=== PATIENT | female | born 1955 | race African-American/Black ===

== ENCOUNTER → 2019-12-22 | Outpatient (CLI) | payer OTHER ==
--- NOTE | 2019-12-22 17:17 | RAD ---
Examination: Limited left breast ultrasound. INDICATION: 64-year-old woman with a suspicious 9 mm mass in the lower inner left breast and suspicious left axillary lymph nodes are recommended for biopsy is requested for preprocedural sonographic evaluation of asymmetries in the left breast prior to biopsy. COMPARISON: Bilateral screening mammogram of 12/06/2019 and left breast ultrasound of 12/06/2019. TECHNIQUE: Targeted ultrasound of the left breast focused at the 12:00 position 5 cm from the nipple identified a ridge of dense fibroglandular tissue with no definite sonographic abnormality. Sonographic survey of the left breast at the 11:00 position 4 cm from the nipple identified irregular hypoechoic 5 mm mass that is sonographically suspicious and recommended for ultrasound-guided core needle biopsy. This will be accomplished concurrent with the mass at the left 8:00 position 6 cm from the nipple already recommended for biopsy. IMPRESSION: Suspicious 6 mm mass in the left breast at the 11:00 position 4 cm from the nipple. Ultrasound-guided core needle biopsy recommended. This will be performed later the same day concurrent with previously recommended mass in the lower inner quadrant left breast. Discussed with patient. Referring physician notified by technologist on the morning of the examination. BI-RADS category 4 Findings suspicious for malignancy Biopsy recommended Electronically signed by: Michael Mckenzie MD (12/22/2019 5:14 PM) [id number]
--- NOTE | 2019-12-22 17:35 | RAD ---
Examination: 1. Ultrasound-guided left breast biopsy at the 8:00 position 6 cm from the nipple. 2. Ultrasound-guided left breast biopsy at the 11:00 position 4 cm from the nipple. 3. Ultrasound-guided left axillary lymph node core needle biopsy. INDICATION: 64-year-old woman with suspicious masses in the lower inner and upper outer left breast as well as suspicious left axillary lymph nodes, all recommended for ultrasound-guided core needle biopsy. COMPARISON: Screening bilateral mammogram and left diagnostic breast ultrasound of 12/06/2019 and left diagnostic breast ultrasound of earlier the same day, 12/22/2019. TECHNIQUE: Informed consent was obtained and an appropriate procedural pause was observed. In 3 separate successive procedures using fresh sterile equipment for each targeted lesion, the following ultrasound-guided core needle biopsies were pursued: Using standard sterile technique, ultrasound guidance and local anesthesia, multiple core biopsy samples of the targeted lesion were obtained and placed in formalin. Three passes were made with a 14-gauge needle at the 8:00 lesion 6 cm from the nipple. Three passes were made at the lesion at the 11:00 position 4 cm from the nipple, also with a 14-gauge biopsy needle. Finally, a single pass using a 12-gauge core biopsy needle was made through one of the abnormal left axillary lymph nodes.. An S-shaped biopsy marker was deployed at the 8:00 lesion. An open padlock-shaped biopsy marker was deployed at the 11:00 position lesion. A second, open padlock-shaped biopsy marker was deployed in the targeted left axillary lymph node. Hemostasis was ensured at each biopsy site with breast compression for several minutes before proceeding to the next biopsy and the puncture sites were dressed. Digital left postprocedure mammogram showed satisfactory deployment of the biopsy markers at all 3 sites. No postbiopsy hematoma. No apparent complications. Patient tolerated the procedures without incident. Post breast reduction surgical changes are incidentally noted. IMPRESSION: Successful ultrasound-guided left breast core needle biopsy of 2 lesions in the left breast and an abnormal left axillary lymph node. Pathology results are pending. An addendum will be issued once pathology results become available. Electronically signed by: Michael Mckenzie MD (12/22/2019 5:32 PM) [id number]
--- NOTE | 2019-12-27 12:06 | PATHOLOGY ---
[facility] Accession Number: [id number] . 01 Material submitted: . PART A: breast - LEFT BREAST TISSUE 8:00 6CMFN. Modifiers: left, 8:00 PART B: breast - LEFT BREAST TISSUE 11:00 4CMFN. Modifiers: left, 11:00 PART C: lymph node - LEFT AXILLA NODE TISSUE. Modifiers: left . 01 Clinical history: . ABNORMAL LEFT MAMMOGRAM, LEFT BREAST MASS 800 6CMFN, LEFT BREAST TISSUE 1100 4CMFN, ABNORMAL LEFT AXILLARY NODE . 02 Diagnosis: A. Breast "left mass 8:00 - 6 cm from nipple", needle biopsy: - INVASIVE DUCTAL CARCINOMA, INTERMEDIATE GRADE. - DUCTAL CARCINOMA IN SITU (DCIS), SOLID TYPE (NUCLEAR GRADE II). - HISTOLOGIC GRADE (TOTAL SCORE 6; TUBULES - 2, NUCLEAR GRADE - 2, MITOTIC ACTIVITY - 2). - TUMOR SPAN 1.1 CM. - LYMPHOVASCULAR INVASION - NOT IDENTIFIED. - MICROCALCULI WITHIN TUMOR AND NON-TUMORAL TISSUE. . B. Breast "left mass 11:00 - 4 cm from nipple", needle biopsy: - Dense fibrosis. - Fat necrosis. - Negative for atypia and malignancy. . C. 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 - Negative for metastatic carcinoma. . Block A1 is forwarded for tumor biomarker studies and the results will be the subject of an addendum report. LBQ 12/27/2019 1120 Local . 02 Comment: The case is seen in co-review with Dr. Winifred Momin. Dr. Lozada is informed of the results, 12/27/2019. (MLK/db; 12/23/2019) . 02 Electronically signed: . Migel Rutherford MD, Pathologist NPI- [id number] . 01 Gross description: . A. The specimen is received in formalin, labeled "Kirstin Mcbride, left breast 8:00 6 cm from nipple". Received are multiple needle cores of fibrofatty tissue measuring 1.3 x 0.6 x 0.2 cm in aggregate dimensions. The specimen is submitted entirely in cassettes A1 through A3. The cold ischemic time is 2 minutes. The total formalin fixation time is 10 hours and 32 minutes. . B. The specimen is received in formalin, labeled "Kirstin Mcbride, left breast 11:00 4 cm from nipple". Received are multiple needle cores of fibrofatty tissue measuring 1.5 x 0.8 x 0.2 cm in aggregate dimensions. The specimen is submitted entirely in cassettes B1 through B3. The cold ischemic time is 2 minutes. The total formalin fixation time is 10 hours. . C. The specimen is received in formalin, labeled "Kirstin Mcbride, left axillary node". Received is a single needle core of yellow-florence fibrofatty tissue measuring 1.3 cm in length by 0.3 cm in diameter. The specimen is submitted entirely in cassette C1. (CAA; 12/22/2019) QAC/QAC 12/22/2019 1726 Local . 02 Microscopic: . Immunohistochemical stain results (properly controlled) AE1/AE3 (block C1) - Negative for tumor cells . 02 Pathologist provided ICD-10: C50.912, D05.12, N60.32, N64.1, R59.0 . 02 CPT . 096067, 459209, 610977, [id number] Specimen Comment: A courtesy copy of this report has been sent to [phone], [phone] Specimen Comment: [id number] Specimen Comment: Report sent to / DR LOZADA Performed at: 01 [facility] [address], [place] [id number] MD Garrett Silva MD Phone: [phone] Performed at: 02 [facility] [address] [place], [place] [id number] MD Red Todd MD Phone: [phone]
== END ==
LOC: US 09:39
PROVIDERS: ATTEND Surgery
DX: D05.12 Intraductal carcinoma in situ of left breast (principal); N60.32 Fibrosclerosis of left breast; R59.0 Localized enlarged lymph nodes; N64.1 Fat necrosis of breast
CPT/HCPCS: 19083; 19084; 38505; 76942; 77065; 88305; 88342; C1713; 19081; 76641